=== PATIENT | male | born 2000 | race African-American/Black ===

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

== ENCOUNTER 2018-01-16 14:26 | Emergency (ER) | payer MEDICAID | END 2018-01-16 15:54 | disposition left against medical advice (07) | LOC: ER 14:26 | DX: Z53.21 Procedure and treatment not carried out due to patient leaving prior to being seen by health care provider (principal) ==